=== PATIENT | female | born 1965 | race African-American/Black ===

== ENCOUNTER → 2018-11-28 | Day surgery (SDC) | payer BC ==
[~2018-11-28] MED LIST: ESTRADIOL1 MG PO; FENTANYL CITRATE/PF 100MCG/2 ML INJ ONE; HORMONE PO; HYOSCYAMINE SULFATE 0.5 MG/ML INJ ONE; LIDOCAINE HCL 2% LOCAL INJ 5 ML SDV VIAL INJ ONE; MIDAZOLAM HCL 2 MG/2 ML VIAL ONE; PANTOPRAZOLE SO40 MG PO; PROPOFOL IV EMULSION 10 MG/ML 50 ML VIAL ONE; SIMETHICONE 40 MG/0.6 ML BTL ONE
--- OUTSIDE RECORDS SUMMARY | 2018-11-28 09:07 | XMS REPORT ---
[facility] Address Unknown Phone Unavailable Care Team Providers Care Respite Worker Name Role Phone Unavailable Unavailable Payers Payer Name Policy Type Policy Number Effective Date Expiration Date Problems This patient has no known problems. Allergies, Adverse Reactions, Alerts Allergy Name Allergy Type Status Severity Reaction(s) Onset Date Inactive Date Treating Clinician Comments No Known Allergies DA Active U 2016-05-05 00:00:00 Medications This patient has no known medications.
--- OUTSIDE RECORDS SUMMARY | 2018-11-28 09:07 | XMS REPORT | Summary of Care ---
Author Author Paul Ocampo M.A. Organization Unknown Address Unknown Phone Unavailable Care Team Providers Care Trampoline Team Coach Name Role Phone Paul Ocampo M.A. Unavailable Unavailable Aguila Schroeder M.D. Unavailable Unavailable JOHN CALIXTO NJAGUILA Unavailable Unavailable Unavailable Unavailable Functional Status Name Dates Details Functional status health issues are not documented Status: Name Dates Details Cognitive status health issues are not documented Status: Problems Name Dates Details GERD (gastroesophageal reflux disease) (530.81, K21.9) Status: Active Colon cancer screening (V76.51, Z12.11) Status: Active Obesity (278.00, E66.9) Status: Active Cough (786.2, R05) Status: Active Medications Name Dates Details Estradiol 2 MG Oral Tablet * Start : 14-Dec-2017 Active Protonix 20 MG Oral Tablet Delayed Release * Refills: 0 * Start : 14-Dec-2017 Active ProAir HFA 108 (90 Base) MCG/ACT Inhalation Aerosol Solution INHALE 1 TO 2 PUFFS EVERY 4 TO 6 HOURS NEEDED. * Quantity: 1 Refills: 3 Aguila Schroeder M.D. * Start : 14-Nov-2018 Active 8.5 GM Inhaler Allergies and Adverse Reactions Name Dates Details No Known Allergies (Allergy) Status: Active Procedures Procedure Dates Details History of Hysterectomy Completed Immunization Name Dates Details Immunizations not documented Family History Name Dates Details Family history of diabetes mellitus (V18.0, Z83.3) Status: Active Family history of essential hypertension (V17.49, Z82.49) Status: Active Name Dates Details Family history of hyperlipidemia (V18.19, Z83.438) Status: Active Family history of essential hypertension (V17.49, Z82.49) Status: Active Name Dates Details Family history of essential hypertension (V17.49, Z82.49) Status: Active Social History Name Dates Details - Status: Name Dates Details Never smoker Vital Signs Date Test Result Details [id number] Physical Findings 0 Status: Comments: Alcohol Screen - How many times in the past yr have you had 5 (for M) or 4 (for F) or 4 (for all > 65yrs) or more drinks in a day? [id number] BP Systolic 141 mm[Hg] Status: Comments: Location: RUE; Position: Sitting BP Diastolic 96 mm[Hg] Status: Comments: Location: RUE; Position: Sitting Height 64 in Status: Weight 208.375 lb Status: Body Mass Index Calculated 35.77 kg/m2 Status: Body Surface Area Calculated 1.99 m2 Status: Temperature 98.2 f Status: Comments: Method: Oral Heart Rate 99 /min Status: Comments: Location: L Radial; Quality: Normal Respiration Rate 16 /min Status: Comments: Quality: Normal [id number] Physical Findings 3 Status: Comments: PHQ-9 Adult Depression Screening Results Date Description Value Details :45 [] CBC (without differential) WBC 8.7 {K/CMM} Range: 3.7-10.4 RBC 4.74 {M/CMM} Range: 4.20-5.40 Hgb 13.9 g/dl Range: 12.0-16.0 Hct 42.4 % Range: 36.0-48.0 MCV 89.4 fL Range: 80.0-98.0 MCH 29.3 pg Range: 27.0-31.0 MCHC 32.7 g/dl Range: 32.0-36.0 RDW 15.0 % (Above high threshold) Range: 11.5-14.5 Platelet 297 {K/CMM} Range: 133-450 Mean Platelet Volume 8.3 fL Range: 7.4-10.4 :45 [QLH] BASIC METABOLIC PANEL W/EGFR Glucose Lvl 80 mg/dl Range: 70-99 Comments: Adult reference range values reflect the clinical guidelinesof the [place] [employer]. Blood Urea Nitrogen 10 mg/dl Range: 7-22 Creatinine Lvl 0.70 mg/dl Range: 0.50-1.40 Sodium Level 142 {mEq/l} Range: 135-145 Potassium Level 4.2 {mEq/l} Range: 3.5-5.1 Chloride Level 107 {mEq/l} Range: 95-109 Carbon Dioxide 27 {mEq/l} Range: 24-32 AGAP 12.2 {mEq/l} Range: 10.0-20.0 Calcium Level Total 9.0 mg/dl Range: 8.5-10.5 eGFR 101 {ML/MIN/1.7} Comments: The eGFR is calculated using the CKD-EPI formula. In most young, healthyindividuals the eGFR will be >90 mL/min/1.73m2. The eGFR declines with age. AneGFR of 60-89 may be normal in some populations, particularly the elderly, forwhom the CKD-EPI formula has not been extensively validated. Use of the eGFR isnot recommended in the following populations:Individuals with unstable creatinine concentrations, including patients and those with serious co-morbid conditions.Patients with extremes in muscle mass or diet.The data above are obtained from the National Kidney Disease Education Program(NKDEP) which additionally recommends that when the eGFR is used in patientswith extremes of body mass index for purposes of drug dosing, the eGFR shouldbe multiplied by the estimated BMI. Plan of Care Name Dates Details Planned Observations Planned Goals not documented Instructions Name Dates Details Instructions not documented Encounters Appointment; SIMRAN TALAMANTES M.D. Encounter Diagnosis: Problem not documented On: 14-Dec-2017 13:15 Appointment; SIMRAN TALAMANTES M.D. Encounter Diagnosis: Problem not documented On: 14-Mar-2018 9:45 Appointment; Aguila Schroeder M.D. Encounter Diagnosis: Problem not documented On: 14-Nov-2018 10:30
[2018-11-28 12:15] VITALS: BP 138/85
[2018-11-28 12:43] LABS: ALANINE AMINOTRANSFERASE 24 IU/L (0-55); ALBUMIN 3.2 g/dL (3.5-5.0); ALBUMIN/GLOBULIN RATIO 0.8 (0.8-2.0); ALKALINE PHOSPHATASE 91 IU/L (40-150); ANION GAP 11.3 mmol/L (8-16); BLOOD UREA NITROGEN 12 mg/dL (7-26); BUN/CREATININE RATIO 15 (6-25); CALCIUM 9.4 mg/dL (8.4-10.2); CARBON DIOXIDE 26 mmol/L (22-29); CHLORIDE 106 mmol/L (98-107); CREATININE, SERUM 0.82 mg/dL (0.57-1.11); EST GLOMERULAR FILTRATION RATE > 60 ML/MIN (60-); GLUCOSE 98 mg/dL (74-118); POTASSIUM 4.3 mmol/L (3.5-5.1); SODIUM 139 mmol/L (136-145)
--- NOTE | 2018-11-28 14:09 | Operative Report ---
DATE OF PROCEDURE: November 28, 2018 REFERRING PHYSICIAN: Dr. Delmy Baptiste. PROCEDURE PERFORMED: Esophagogastroduodenoscopy with biopsies and colonoscopy with polypectomy. INDICATIONS FOR ESOPHAGOGASTRODUODENOSCOPY: History of melena. INDICATIONS FOR COLONOSCOPY: Colorectal cancer screening. MEDICATION: Patient was done under MAC. Please see anesthesiologist's note. PROCEDURE: Patient in left lateral decubitus position, a flexible fiberoptic Olympus gastroscope was introduced into the esophagus under direct visualization without any difficulty. There were some prominent subepithelial veins versus very early esophageal varices. There was some patchy erythema noted in distal esophagus. The scope was then advanced with ease into the stomach. Mucosa overlying the antrum and the body revealed some patchy intense erythema and low-grade to moderate edema and biopsies were obtained, sent to stain for H. pylori. The pylorus was of normal contour and shape, was intubated with ease and the scope was advanced all the way to the 2nd portion of the duodenum. The mucosa overlying the proximal 2nd portion appeared to be within normal limits. There was some patchy erythema noted in the duodenal bulb. The scope was then withdrawn back into the stomach and retroflexed. The mucosa overlying the fundus and the cardia appeared to be within normal limits. The scope was then straightened out. It was subsequently withdrawn. Patient tolerated the procedure well. IMPRESSIONS 1. Mild distal esophagitis. 2. Prominent esophageal subepithelial veins versus early esophageal varices. 3. Gastritis, biopsied. Biopsies sent to stain for Helicobacter pylori. 4. Duodenitis, mild. PLAN: Follow up histology. Initiate Protonix 40 mg 1 p.o. q.a.m. a.c. Patient was then turned around. After adequate lubrication of the anal canal, a flexible fiberoptic Olympus colonoscope was inserted into the rectum with ease and advanced all the way to the cecum. It was then withdrawn slowly. Mucosa overlying the cecum, ascending, transverse and descending appeared to be within normal limits, other than minimal diverticular disease. Five polyps were hot biopsied from the sigmoid colon. One polyp was hot biopsied from the rectum. Scope was then retroflexed into the distal rectum and small internal hemorrhoids were noted, none of which was actively bleeding. The scope was then straightened out and was subsequently withdrawn. Patient tolerated the procedure well. IMPRESSIONS 1. Diverticulosis. 2. Sigmoid colon polyps x5, hot biopsied. 3. Rectal polyp x1, hot biopsied. 4. Internal hemorrhoids, none actively bleeding. PLAN: Follow up histology. Initiate high-fiber, low-fat diet. Initiate high-fiber supplement. Patient might benefit from a followup colonoscopy in 3 years. A total of 6 polyps were removed. Job#: [id number] TA cc: DR. DELMY BAPTISTE
== END | disposition home or self-care (01) ==
LOC: OR 09:05
PROVIDERS: ATTEND Internal Medicine Gastroenterology
DX: Z12.11 Encounter for screening for malignant neoplasm of colon (principal); K63.5 Polyp of colon; K62.1 Rectal polyp; K29.60 Other gastritis without bleeding; K29.80 Duodenitis without bleeding; K20.8 Other esophagitis; K21.9 Gastro-esophageal reflux disease without esophagitis; K57.30 Diverticulosis of large intestine without perforation or abscess without bleeding; K64.8 Other hemorrhoids; R19.7 Diarrhea, unspecified; Z01.810 Encounter for preprocedural cardiovascular examination; Z68.36 Body mass index [BMI] 36.0-36.9, adult
CPT/HCPCS: 36415; 43239; 45384; 80053; 93005; J1980; J2001; J2250; 45378